=== PATIENT | female | born 2005 | race Caucasian/White ===

== ENCOUNTER 2024-07-25 09:26 | Outpatient (RCR) | payer MEDICAID, SELFPAY ==
--- NOTE | 2024-07-30 23:00 | CTCCONSULT_ITS ---
[address] [address] RE: LISETH GLOVER: 2005 AGE: 19 DATE OF CONSULTATION: 07/25/2024 DIAGNOSIS: Iron deficiency anemia, unspecified [ICD10] D50.9 Concern for von villi brand disease REFERRING PHYSICIAN: EDMOND FRANKLIN PRIMARY PHYSICIAN :EDMOND FRANKLIN REASON FOR CONSULTATION: Iron deficiency HISTORY OF PRESENT ILLNESS: Patient is a 19-year-old woman has come to the clinic with her dad. Patient is complaining of heavy menstrual cycles which last for many days. Patient was prescribed oral iron which upsets her stomach . She is also placed on oral contraceptive pills to reduce her menstrual flow. She has no history of pain in her joints or bruising and bleeding. Her. Menstrual cycles have been heavy since the start of menarche. She feels that her menstrual cycles are becoming heavier. She carter s seen poultry helper who referred her to hematology. PAST MEDICAL HISTORY: Iron deficiency Depression FAMILY HISTORY: Cancer History - - Pat grandfather-kidney; Mat grandfather-colon SOCIAL HISTORY: Occupational History - Student Education Level - Completed High School Marital Status - Single Tobacco Use Note - Denies ETOH Use Note - Denies Drug Note - THC tea - at night daily - 6 -9 months Abuse/Neglect Note - Denies Social History Note 2 - Lives lives parents [employer] HISTORY: Menarche - Age - 9 Date LMP - 07/08/2024 - 0 Live Births - 0 Gynecological Note - Menses with heavy bleeding 5-9 days and irregular Gynecological Note 2 - Following with Dr. Franklin - [employer] MEDICATIONS: Loestrin 10/07 (21) [norethindrone acetate/ethinyl estradiol] busPIRone ALLERGIES: No Known Drug Allergies REVIEW OF SYSTEMS TRANSPORTATION DEPARTMENT HEAD: No headache, seizures or blurring of vision. GI: No nausea, vomiting, diarrhea or constipation. CVS: No palpitations or angina pains. Respiratory: No cough, chest pain or shortness of breath. VITAL SIGNS: Date Time PHYSICAL EXAMINATION: Conjunctivae is white. Oral cavity is dry. Chest is clear to auscultation. No wheezes or rales audible. CVS: Rhythm regular, no murmurs or gallops present. Abdomen is soft. No hepatosplenomegaly. Extremities: No pedal edema or cyanosis. LABORATORY DATA: Date Time ASSESSMENT: #1 anemia likely iron deficiency likely from excessive menorrhagia #2 menorrhagia concerning for von Willebrand disease PLAN: ??Reviewed labs and no evidence of von Willebrand disease Will get CBC CMP CMP von Willebrand panel PT PTT checked outside was normal Will check for iron studies ORDERS: RETURN TO CLINIC: cc: ELVER FRANKLIN, Referring: EDMOND FRANKLIN Electronically Signed {Object.Sanct_Date} at {Object.Sanct_Time} {Object.Sanct_ID*PnP.NameFL@M}, {Object.Sanct_ID*PnP.Suffix@U} Patient: LISETH GLOVER : 2005 MR#: [id number] Account: [id number] FOLLOW UP NOTE Page 2 of 3
== END 2024-08-17 23:59 | disposition home or self-care (01) ==
LOC: SCTC 09:26
PROVIDERS: PCP Nurse Practitioner Family; Referring Provider Specialist; Visit Provider Internal Medicine Hematology & Oncology
DX: D50.9 Iron deficiency anemia, unspecified (principal); N92.0 Excessive and frequent menstruation with regular cycle
CPT/HCPCS: 99213; G0463